=== PATIENT | female | born 1960 | race Hispanic/Latino ===

== ENCOUNTER 2021-03-06 09:59 | Inpatient (IN) | payer BC, OTHER ==
[2021-03-06] VITALS (9 sets, daily range): BP systolic 87–107; BP diastolic 47–61
[~2021-03-06] VITALS: Ht 160 cm; Wt 74.0 kg
[2021-03-06 10:28] LABS: ABG BASE EXCESS 4.3 mmol/L (-2.0-3.0); ABG HCO3 27.5 mmol/L (21.0-28.0); ABG OXYGEN SATURATION 83.5 % (95.0-99.0); ABG PCO2 37 mmHg (32-45)
[2021-03-06 10:38] LABS: BASOPHILS % (AUTO) 0.1 % (0.0-5.0); HEMATOCRIT 40.5 % (36-48); LYMPHOCYTES % (AUTO) 8.7 % (21.0-51.0); MEAN CORPUSCULAR HGB CONC 33.6 g/dL (32.0-36.0); MEAN CORPUSCULAR VOLUME 83.3 fL (79-99); MONOCYTES % (AUTO) 4.3 % (3.0-13.0); NEUTROPHILS % (AUTO) 86.4 % (40.0-77.0); PLATELET COUNT (AUTO) 270 K/uL (130-400); RED BLOOD CELL COUNT(AUTO) 4.86 MIL/uL (4.00-5.50); RED CELL DISTRIBUTION WIDTH 13.3 % (11.0-15.5); WHITE BLOOD COUNT (AUTO) 12.7 K/uL (4.8-10.8)
[2021-03-06] MEDS ORDERED: ACETAMINOPHEN 500 MG TABLET ONE (10:42)
[2021-03-06 10:52] LABS: CARBON DIOXIDE 32 mmol/L (21-32); CHLORIDE 99 mmol/L (101-111); GLOMERULAR FILTR. RATE CALC 60 mL/min (>60); GLUCOSE,RANDOM 126 mg/dL (70-105); POTASSIUM 3.1 mmol/L (3.5-5.1); SODIUM SERUM 139 mmol/L (136-145); UREA NITROGEN, BLOOD 21 mg/dL (7-18)
[2021-03-06 11:03] LABS: ALANINE AMINOTRANSFERASE 60 U/L (12-78); ASPARTATE AMINOTRANSFERASE 56 U/L (10-37); BILIRUBIN,TOTAL 0.8 mg/dL (0.2-1.0); CREATINE KINASE, TOTAL 48 U/L (21-232); MYOGLOBIN 42 ng/mL (10-92); TOTAL PROTEIN, SERUM 7.6 g/dL (6.0-8.3); TROPONIN I < 0.04 ng/mL (0.00-0.06)
[2021-03-06 11:11] LABS: B-TYPE NATRIURETIC PEPTIDE 52 pg/mL (0-100)
[2021-03-06] MEDS ORDERED: ERGOCALCIFEROL (VITAMIN D2) 50,000 UNIT CAPSULE PO ONE (12:00)
[2021-03-06] MEDS ORDERED: LACTULOSE 20 GM/30 ML UDCUP PO PRN (12:00)
[2021-03-06] MEDS: CEFTRIAXONE 1G VIAL IVP SCH ×2 (12:00→23:30)
[2021-03-06] MEDS ORDERED: ACETAMINOPHEN 325 MG TAB PO PRN ×2 (12:00)
[2021-03-06] MEDS ORDERED: ONDANSETRON 4MG INJ IV PRN (12:00)
[2021-03-06] MEDS: DEXAMETHASONE SOD PHOSPHATE 4 MG/ML 1ML VIAL IVP SCH (12:00)
[2021-03-06] MEDS ORDERED: PHARMACY COMMUNICATION MISC SCH (12:30)
[2021-03-06] MEDS ORDERED: DOXYCYCLINE 100MG+NS 250ML IV SCH (13:00)
[2021-03-06 13:29] LABS: INR 1.08 (0.85-1.15); PARTIAL THROMBOPLASTIN TIME 26.2 SEC (26.3-35.5); PROTHROMBIN TIME 11.1 SEC (9.6-11.6)
[2021-03-06] MEDS ORDERED: CEFTRIAXONE 1G VIAL ONE (14:15)
[2021-03-06] MEDS ORDERED: DEXAMETHASONE SOD PHOSPHATE 4 MG/ML 1ML VIAL ONE (14:15)
[2021-03-06] MEDS ORDERED: IOHEXOL-350 75 ML VIAL IV ONE (14:38)
[2021-03-06] MEDS ORDERED: COMPOUND IV REFRIGERATED 1 EACH IVSOLN MISC PRN (15:00)
[2021-03-06] MEDS ORDERED: REMDESIVIR (EUA) 520 200 MG in 0.9% NACL 250ML 250 ML IV ONE (15:00)
[2021-03-06] MEDS ORDERED: ESTR0.5T PO (15:55)
[2021-03-06] MEDS ORDERED: ERGO500093 PO (15:58)
[2021-03-06] MEDS ORDERED: AZIT250T9 PO (16:00)
[2021-03-06] MEDS: FAMOTIDINE 20MG VIAL IV SCH (20:49)
[2021-03-06] MEDS: DOXYCYCLINE HYCLATE 100 MG TABLET PO SCH (20:50)
[2021-03-07 00:19] LABS: APPEARANCE,URINE Clear (CLEAR); BILIRUBIN,URINE Negative (NEGATIVE); COLOR,URINE Yellow (YELLOW); GLUCOSE, URINE (UA) Negative (NEGATIVE); KETONES,URINE Negative (NEGATIVE); LEUKOCYTE ESTERASE ,URINE Negative (NEGATIVE); NITRATE,URINE Negative (NEGATIVE); OCCULT BLOOD,URINE Negative (NEGATIVE); PROTEIN,URINE POS 1+ mg/dL (NEGATIVE)
[2021-03-07 00:25] LABS: BACTERIA,URINE None Seen /HPF (None Seen); RBC,URINE None Seen /HPF (0-1); SQUAMOUS EPITHELIAL CELL,UR Few /HPF (0-2); WBC,URINE None Seen /HPF (0-1)
[2021-03-07 03:54] VITALS: BP 110/68
[2021-03-07 04:38] LABS: BASOPHILS % (AUTO) 0.1 % (0.0-5.0); LYMPHOCYTES % (AUTO) 9.2 % (21.0-51.0); MEAN CORPUSCULAR HEMOGLOBIN 27.6 pg (27.0-33.0); MEAN CORPUSCULAR HGB CONC 32.2 g/dL (32.0-36.0); MEAN CORPUSCULAR VOLUME 85.5 fL (79-99); MONOCYTES % (AUTO) 5.2 % (3.0-13.0); NEUTROPHILS % (AUTO) 85.1 % (40.0-77.0); PLATELET COUNT (AUTO) 264 K/uL (130-400); RED BLOOD CELL COUNT(AUTO) 4.21 MIL/uL (4.00-5.50); RED CELL DISTRIBUTION WIDTH 13.5 % (11.0-15.5); WHITE BLOOD COUNT (AUTO) 10.2 K/uL (4.8-10.8)
[2021-03-07 04:55] LABS: ALBUMIN 2.7 g/dL (3.5-5.0); BILIRUBIN,TOTAL 0.5 mg/dL (0.2-1.0); CREATININE 0.9 mg/dL (0.5-1.5); CRP QUANTITATIVE 169.4 mg/L (0.00-9.0)
[2021-03-07] MEDS ORDERED: POTASSIUM CHLORIDE 10% ELIXIR 20 MEQ/15 ML UDCUP PO PRN (05:45)
[2021-03-07] MEDS ORDERED: LIDOCAINE HCL-MPF 1% 2ML VIAL IV PRN (05:45)
[2021-03-07] MEDS ORDERED: POTASSIUM CHLORIDE 20MEQ/100ML 100 ML IV PRN (05:45)
[2021-03-07] MEDS: REMDESIVIR LABS MISC SCH (06:00)
[2021-03-07 07:22] VITALS: BP 113/71
[2021-03-07] MEDS: DOXYCYCLINE HYCLATE 100 MG TABLET PO SCH ×2 (08:03→22:32)
[2021-03-07] MEDS: FAMOTIDINE 20MG VIAL IV SCH ×2 (08:03→22:32)
[2021-03-07] MEDS: ENOXAPARIN SODIUM 40 MG/0.4 ML SYRINGE SQ SCH (08:03)
[2021-03-07] MEDS: ASCORBIC ACID 500 MG TAB PO SCH (08:03)
[2021-03-07] MEDS: KCL 20 MEQ ERTAB PO PRN ×2 (08:04→11:52)
[2021-03-07] MEDS: DEXAMETHASONE SOD PHOSPHATE 4 MG/ML 1ML VIAL IVP SCH ×2 (11:51→23:18)
[2021-03-07] MEDS: ZINC SULFATE 220 CAPSULE PO SCH (11:51)
[2021-03-07] MEDS: CEFTRIAXONE 1G VIAL IVP SCH ×2 (11:51→23:18)
[2021-03-07 12:00] VITALS: BP 92/48
[2021-03-07] MEDS: REMDESIVIR (EUA) 520 100 MG in 0.9% NACL 250ML 250 ML IV SCH (14:03)
[2021-03-07] MEDS ORDERED: PHARMACY COMMUNICATION MISC SCH (14:45)
[2021-03-07] MEDS: BARICITINIB (EUA) 2 MG TABLET PO SCH (15:43)
[2021-03-07 16:01] VITALS: BP 99/66
[2021-03-07 20:00] VITALS: BP 112/66
[2021-03-08 04:00] VITALS: BP 119/75
[2021-03-08 04:33] LABS: BASOPHILS % (AUTO) 0.2 % (0.0-5.0); HEMATOCRIT 37.3 % (36-48); LYMPHOCYTES % (AUTO) 17.1 % (21.0-51.0); MEAN CORPUSCULAR HGB CONC 32.4 g/dL (32.0-36.0); MEAN CORPUSCULAR VOLUME 86.3 fL (79-99); MONOCYTES % (AUTO) 4.5 % (3.0-13.0); NEUTROPHILS % (AUTO) 77.4 % (40.0-77.0); PLATELET COUNT (AUTO) 329 K/uL (130-400); RED BLOOD CELL COUNT(AUTO) 4.32 MIL/uL (4.00-5.50); RED CELL DISTRIBUTION WIDTH 13.6 % (11.0-15.5); WHITE BLOOD COUNT (AUTO) 4.9 K/uL (4.8-10.8)
[2021-03-08 04:49] LABS: ALBUMIN 2.6 g/dL (3.5-5.0); BILIRUBIN,DIRECT 0.1 mg/dL (0.0-0.3); BILIRUBIN,TOTAL 0.6 mg/dL (0.2-1.0); CREATININE 0.8 mg/dL (0.5-1.5); CRP QUANTITATIVE 115.6 mg/L (0.00-9.0); MAGNESIUM 2.5 mg/dL (1.80-2.40); POTASSIUM 3.9 mmol/L (3.5-5.1); TOTAL PROTEIN, SERUM 6.9 g/dL (6.0-8.3)
[2021-03-08] MEDS: REMDESIVIR LABS MISC SCH (06:00)
[2021-03-08 07:00] VITALS: BP 122/78
[2021-03-08] MEDS: ASCORBIC ACID 500 MG TAB PO SCH (08:23)
[2021-03-08] MEDS: FAMOTIDINE 20MG VIAL IV SCH ×2 (08:23→20:09)
[2021-03-08] MEDS: DOXYCYCLINE HYCLATE 100 MG TABLET PO SCH ×2 (08:23→20:10)
[2021-03-08] MEDS: ENOXAPARIN SODIUM 40 MG/0.4 ML SYRINGE SQ SCH (08:24)
[2021-03-08] MEDS: BARICITINIB (EUA) 2 MG TABLET PO SCH (09:00)
[2021-03-08 12:00] VITALS: BP 110/65
[2021-03-08] MEDS: CEFTRIAXONE 1G VIAL IVP SCH ×2 (12:39→23:03)
[2021-03-08] MEDS: ZINC SULFATE 220 CAPSULE PO SCH (12:40)
[2021-03-08] MEDS: DEXAMETHASONE SOD PHOSPHATE 4 MG/ML 1ML VIAL IVP SCH ×2 (12:40→23:03)
[2021-03-08] MEDS: REMDESIVIR (EUA) 520 100 MG in 0.9% NACL 250ML 250 ML IV SCH (14:53)
[2021-03-08 16:00] VITALS: BP 115/67
[2021-03-08 20:00] VITALS: BP 109/70
[2021-03-09 04:00] VITALS: BP 112/71
[2021-03-09 04:35] LABS: BASOPHILS % (AUTO) 0.2 % (0.0-5.0); HEMATOCRIT 37.5 % (36-48); LYMPHOCYTES % (AUTO) 9.5 % (21.0-51.0); MEAN CORPUSCULAR HEMOGLOBIN 27.4 pg (27.0-33.0); MEAN CORPUSCULAR VOLUME 85.6 fL (79-99); MONOCYTES % (AUTO) 4.6 % (3.0-13.0); PLATELET COUNT (AUTO) 383 K/uL (130-400); RED BLOOD CELL COUNT(AUTO) 4.38 MIL/uL (4.00-5.50); RED CELL DISTRIBUTION WIDTH 13.4 % (11.0-15.5); WHITE BLOOD COUNT (AUTO) 5.5 K/uL (4.8-10.8)
[2021-03-09 05:40] LABS: ALBUMIN 2.5 g/dL (3.5-5.0); BILIRUBIN,DIRECT 0.1 mg/dL (0.0-0.3); BILIRUBIN,TOTAL 0.6 mg/dL (0.2-1.0); CREATININE 0.7 mg/dL (0.5-1.5); CRP QUANTITATIVE 61.5 mg/L (0.00-9.0); TOTAL PROTEIN, SERUM 6.4 g/dL (6.0-8.3)
[2021-03-09] MEDS: REMDESIVIR LABS MISC SCH (06:00)
[2021-03-09 08:00] VITALS: BP 115/66
[2021-03-09] MEDS: DOXYCYCLINE HYCLATE 100 MG TABLET PO SCH ×2 (08:51→21:23)
[2021-03-09] MEDS: ASCORBIC ACID 500 MG TAB PO SCH (08:51)
[2021-03-09] MEDS: FAMOTIDINE 20MG VIAL IV SCH ×2 (08:51→21:23)
[2021-03-09] MEDS: ENOXAPARIN SODIUM 40 MG/0.4 ML SYRINGE SQ SCH ×2 (08:52→21:25)
[2021-03-09] MEDS: BARICITINIB (EUA) 2 MG TABLET PO SCH (09:00)
[2021-03-09 12:00] VITALS: BP 122/64
[2021-03-09] MEDS: DEXAMETHASONE SOD PHOSPHATE 4 MG/ML 1ML VIAL IVP SCH ×2 (12:16→23:49)
[2021-03-09] MEDS: CEFTRIAXONE 1G VIAL IVP SCH ×2 (12:16→23:57)
[2021-03-09] MEDS: ZINC SULFATE 220 CAPSULE PO SCH (12:16)
[2021-03-09] MEDS: REMDESIVIR (EUA) 520 100 MG in 0.9% NACL 250ML 250 ML IV SCH (15:40)
[2021-03-09 16:00] VITALS: BP 118/59
[2021-03-09 20:00] VITALS: BP 113/65
[2021-03-10] VITALS (7 sets, daily range): BP systolic 94–139; BP diastolic 53–74
[2021-03-10 05:28] LABS: CREATININE 0.8 mg/dL (0.5-1.5); CRP QUANTITATIVE 39.9 mg/L (0.00-9.0)
[2021-03-10 07:25] LABS: BASOPHILS % (AUTO) 0.3 % (0.0-5.0); HEMATOCRIT 40.4 % (36-48); LYMPHOCYTES % (AUTO) 9.3 % (21.0-51.0); MEAN CORPUSCULAR HEMOGLOBIN 28.1 pg (27.0-33.0); MEAN CORPUSCULAR HGB CONC 32.7 g/dL (32.0-36.0); MEAN CORPUSCULAR VOLUME 86.1 fL (79-99); MONOCYTES % (AUTO) 4.1 % (3.0-13.0); NEUTROPHILS % (AUTO) 84.4 % (40.0-77.0); PLATELET COUNT (AUTO) 466 K/uL (130-400); RED BLOOD CELL COUNT(AUTO) 4.69 MIL/uL (4.00-5.50); RED CELL DISTRIBUTION WIDTH 13.3 % (11.0-15.5); WHITE BLOOD COUNT (AUTO) 7.7 K/uL (4.8-10.8)
[2021-03-10] MEDS: BARICITINIB (EUA) 2 MG TABLET PO SCH (09:00)
[2021-03-10] MEDS: ASCORBIC ACID 500 MG TAB PO SCH (09:09)
[2021-03-10] MEDS: DOXYCYCLINE HYCLATE 100 MG TABLET PO SCH (09:09)
[2021-03-10] MEDS: FAMOTIDINE 20MG VIAL IV SCH ×2 (09:09→21:42)
[2021-03-10] MEDS: ENOXAPARIN SODIUM 40 MG/0.4 ML SYRINGE SQ SCH ×2 (09:10→21:43)
[2021-03-10] MEDS: ZINC SULFATE 220 CAPSULE PO SCH (12:58)
[2021-03-10] MEDS: DEXAMETHASONE SOD PHOSPHATE 4 MG/ML 1ML VIAL IVP SCH ×2 (12:58→23:02)
[2021-03-10] MEDS: CEFTRIAXONE 1G VIAL IVP SCH (12:58)
[2021-03-10] MEDS: REMDESIVIR (EUA) 520 100 MG in 0.9% NACL 250ML 250 ML IV SCH (16:01)
[2021-03-10] MEDS: REMDESIVIR LABS MISC SCH (19:00)
[2021-03-11 04:15] VITALS: BP 118/77
[2021-03-11 04:45] LABS: BASOPHILS % (AUTO) 0.3 % (0.0-5.0); MEAN CORPUSCULAR HEMOGLOBIN 27.2 pg (27.0-33.0); MEAN CORPUSCULAR HGB CONC 31.5 g/dL (32.0-36.0); MEAN CORPUSCULAR VOLUME 86.1 fL (79-99); NEUTROPHILS % (AUTO) 81.7 % (40.0-77.0); PLATELET COUNT (AUTO) 422 K/uL (130-400); RED BLOOD CELL COUNT(AUTO) 4.53 MIL/uL (4.00-5.50); RED CELL DISTRIBUTION WIDTH 13.2 % (11.0-15.5); WHITE BLOOD COUNT (AUTO) 6.5 K/uL (4.8-10.8)
[2021-03-11 05:14] LABS: ALBUMIN 2.5 g/dL (3.5-5.0); BILIRUBIN,TOTAL 0.5 mg/dL (0.2-1.0); CREATININE 0.7 mg/dL (0.5-1.5); CRP QUANTITATIVE 24.1 mg/L (0.00-9.0); MAGNESIUM 1.9 mg/dL (1.80-2.40); PHOSPHORUS 3.8 mg/dL (2.5-4.9); POTASSIUM 4.4 mmol/L (3.5-5.1)
[2021-03-11] MEDS: REMDESIVIR LABS MISC SCH (06:42)
[2021-03-11 07:50] VITALS: BP 95/51
[2021-03-11] MEDS: FAMOTIDINE 20MG VIAL IV SCH ×2 (08:06→21:12)
[2021-03-11] MEDS: BARICITINIB (EUA) 2 MG TABLET PO SCH (08:06)
[2021-03-11] MEDS: ASCORBIC ACID 500 MG TAB PO SCH (08:06)
[2021-03-11] MEDS: ENOXAPARIN SODIUM 40 MG/0.4 ML SYRINGE SQ SCH (08:08)
[2021-03-11] MEDS ORDERED: DEXAMETHASONE SOD PHOSPHATE 4 MG/ML 1ML VIAL IVP SCH (09:00)
[2021-03-11] MEDS: ZINC SULFATE 220 CAPSULE PO SCH (11:29)
[2021-03-11 12:00] VITALS: BP 95/55
[2021-03-11 16:00] VITALS: BP 111/71
[2021-03-11 20:56] VITALS: BP 99/62
[2021-03-11] MEDS: APIXABAN 2.5 MG TABLET PO SCH (21:12)
[2021-03-11 23:57] VITALS: BP 116/53
[2021-03-12] VITALS (8 sets, daily range): BP systolic 81–128; BP diastolic 41–74
[2021-03-12 06:37] LABS: BASOPHILS % (AUTO) 0.3 % (0.0-5.0); EOSINOPHILS % (AUTO) 0.3 % (0.0-8.0); HEMATOCRIT 37.2 % (36-48); MEAN CORPUSCULAR HEMOGLOBIN 27.4 pg (27.0-33.0); MEAN CORPUSCULAR VOLUME 85.5 fL (79-99); MONOCYTES % (AUTO) 5.6 % (3.0-13.0); PLATELET COUNT (AUTO) 402 K/uL (130-400); RED BLOOD CELL COUNT(AUTO) 4.35 MIL/uL (4.00-5.50); RED CELL DISTRIBUTION WIDTH 13.1 % (11.0-15.5); WHITE BLOOD COUNT (AUTO) 8.7 K/uL (4.8-10.8)
[2021-03-12 07:01] LABS: ALBUMIN 2.4 g/dL (3.5-5.0); BILIRUBIN,TOTAL 0.7 mg/dL (0.2-1.0); CREATININE 0.8 mg/dL (0.5-1.5); CRP QUANTITATIVE 13.5 mg/L (0.00-9.0); POTASSIUM 3.6 mmol/L (3.5-5.1); TOTAL PROTEIN, SERUM 5.4 g/dL (6.0-8.3)
[2021-03-12] MEDS: ASCORBIC ACID 500 MG TAB PO SCH (08:58)
[2021-03-12] MEDS: APIXABAN 2.5 MG TABLET PO SCH ×2 (08:58→21:34)
[2021-03-12] MEDS: BARICITINIB (EUA) 2 MG TABLET PO SCH (08:59)
[2021-03-12] MEDS: DEXAMETHASONE 4 MG TAB PO SCH (08:59)
[2021-03-12] MEDS: FAMOTIDINE 20MG VIAL IV SCH ×2 (08:59→21:35)
[2021-03-12] MEDS ORDERED: LACTATED RINGERS 1000ML 1,000 ML IV ONE (09:11)
[2021-03-12] MEDS ORDERED: LACTATED RINGERS 1000ML 1,000 ML IV SCH (09:30)
[2021-03-12] MEDS: LACTATED RINGERS 1000ML IV SCH (10:05)
[2021-03-12] MEDS ORDERED: MIDODRINE HCL 5 MG TABLET PO SCH (10:15)
[2021-03-12] MEDS: ZINC SULFATE 220 CAPSULE PO SCH (12:17)
[2021-03-12] MEDS: ZOSYN 3.375GM+NS 50ML 50 ML IV SCH ×2 (12:18→18:02)
[2021-03-12] MEDS: MIDODRINE HCL 5 MG TABLET PO SCH ×2 (13:13→21:34)
[2021-03-12 21:59] LABS: APPEARANCE,URINE Clear (CLEAR); BILIRUBIN,URINE Negative (NEGATIVE); COLOR,URINE Yellow (YELLOW); GLUCOSE, URINE (UA) 250 mg/dL (NEGATIVE); KETONES,URINE Negative (NEGATIVE); LEUKOCYTE ESTERASE ,URINE Negative (NEGATIVE); NITRATE,URINE Negative (NEGATIVE); OCCULT BLOOD,URINE Negative (NEGATIVE); PROTEIN,URINE Negative (NEGATIVE); UROBILINOGEN,URINE 0.2 mg/dL (0.2-1.0)
[2021-03-13] VITALS (8 sets, daily range): BP systolic 81–135; BP diastolic 44–74
[2021-03-13] MEDS: ZOSYN 3.375GM+NS 50ML 50 ML IV SCH ×3 (01:18→17:47)
[2021-03-13] MEDS ORDERED: COSYNTROPIN 0.25 MG VIAL IM SCH (04:00)
[2021-03-13 05:27] LABS: CREATININE 0.7 mg/dL (0.5-1.5); CRP QUANTITATIVE 10.3 mg/L (0.00-9.0); POTASSIUM 4.1 mmol/L (3.5-5.1)
[2021-03-13 05:33] LABS: BASOPHILS % (AUTO) 0.3 % (0.0-5.0); EOSINOPHILS % (AUTO) 0.2 % (0.0-8.0); HEMATOCRIT 35.5 % (36-48); LYMPHOCYTES % (AUTO) 17.3 % (21.0-51.0); MEAN CORPUSCULAR HEMOGLOBIN 27.5 pg (27.0-33.0); MEAN CORPUSCULAR HGB CONC 32.1 g/dL (32.0-36.0); MEAN CORPUSCULAR VOLUME 85.5 fL (79-99); MONOCYTES % (AUTO) 5.6 % (3.0-13.0); NEUTROPHILS % (AUTO) 70.5 % (40.0-77.0); PLATELET COUNT (AUTO) 376 K/uL (130-400); RED BLOOD CELL COUNT(AUTO) 4.15 MIL/uL (4.00-5.50); RED CELL DISTRIBUTION WIDTH 13.3 % (11.0-15.5); WHITE BLOOD COUNT (AUTO) 9.6 K/uL (4.8-10.8)
[2021-03-13] MEDS: LACTATED RINGERS 1000ML IV SCH (08:06)
[2021-03-13] MEDS: DEXAMETHASONE 4 MG TAB PO SCH (10:28)
[2021-03-13] MEDS: FAMOTIDINE 20MG VIAL IV SCH ×2 (10:28→20:25)
[2021-03-13] MEDS: APIXABAN 2.5 MG TABLET PO SCH ×2 (10:29→20:25)
[2021-03-13] MEDS: MIDODRINE HCL 5 MG TABLET PO SCH ×3 (10:29→20:32)
[2021-03-13] MEDS: BARICITINIB (EUA) 2 MG TABLET PO SCH (10:29)
[2021-03-13] MEDS: ASCORBIC ACID 500 MG TAB PO SCH (10:29)
[2021-03-13] MEDS: ZINC SULFATE 220 CAPSULE PO SCH (12:08)
[2021-03-13] MEDS ORDERED: LACTATED RINGERS 1000ML 1,000 ML IV ONE (17:14)
[2021-03-14] MEDS: ZOSYN 3.375GM+NS 50ML 50 ML IV SCH ×2 (01:22→09:55)
[2021-03-14 03:00] VITALS: BP 107/73
[2021-03-14 06:01] LABS: BASOPHILS % (AUTO) 0.3 % (0.0-5.0); EOSINOPHILS % (AUTO) 0.2 % (0.0-8.0); HEMATOCRIT 36.3 % (36-48); LYMPHOCYTES % (AUTO) 17.7 % (21.0-51.0); MEAN CORPUSCULAR HEMOGLOBIN 28.8 pg (27.0-33.0); MEAN CORPUSCULAR HGB CONC 33.9 g/dL (32.0-36.0); MONOCYTES % (AUTO) 4.2 % (3.0-13.0); NEUTROPHILS % (AUTO) 72.6 % (40.0-77.0); PLATELET COUNT (AUTO) 357 K/uL (130-400); RED BLOOD CELL COUNT(AUTO) 4.27 MIL/uL (4.00-5.50); RED CELL DISTRIBUTION WIDTH 13.5 % (11.0-15.5); WHITE BLOOD COUNT (AUTO) 10.5 K/uL (4.8-10.8)
[2021-03-14 07:00] VITALS: BP 95/53
[2021-03-14] MEDS: FAMOTIDINE 20MG VIAL IV SCH (08:56)
[2021-03-14] MEDS: BARICITINIB (EUA) 2 MG TABLET PO SCH (08:56)
[2021-03-14] MEDS: MIDODRINE HCL 5 MG TABLET PO SCH ×2 (08:57→13:47)
[2021-03-14] MEDS: APIXABAN 2.5 MG TABLET PO SCH (08:57)
[2021-03-14] MEDS: ASCORBIC ACID 500 MG TAB PO SCH (08:57)
[2021-03-14] MEDS: DEXAMETHASONE 4 MG TAB PO SCH (08:57)
[2021-03-14 11:00] VITALS: BP 94/63
[2021-03-14] MEDS ORDERED: DEXA6TAB PO (12:22)
[2021-03-14] MEDS ORDERED: PANT40TA55 PO (12:23)
[2021-03-14] MEDS ORDERED: FLUD0.1T2 PO (12:23)
[2021-03-14] MEDS ORDERED: APIX2.5T PO ×2 (12:23→13:44)
[2021-03-14] MEDS ORDERED: MIDO5TAB4 PO (12:23)
[2021-03-14] MEDS: ZINC SULFATE 220 CAPSULE PO SCH (13:47)
== END 2021-03-14 14:37 | disposition home or self-care (01) | DRG 177 ==
LOC: EDH 09:59 → EDHIP 11:48 → 2AH 16:09
PROVIDERS: ADMIT Internal Medicine; ATTEND Internal Medicine
PROC: XW13325 Transfusion of Convalescent Plasma (Nonautologous) into Peripheral Vein, Percutaneous Approach, New Technology Group 5 (ICD-10-PCS; principal; 2021-03-06)
PROC: XW033E5 Introduction of Remdesivir Anti-infective into Peripheral Vein, Percutaneous Approach, New Technology Group 5 (ICD-10-PCS; 2021-03-06)
PROC: 5A0935A Assistance with Respiratory Ventilation, Less than 24 Consecutive Hours, High Flow/Velocity Cannula (ICD-10-PCS; 2021-03-07)
PROC: 5A0935A Assistance with Respiratory Ventilation, Less than 24 Consecutive Hours, High Flow/Velocity Cannula (ICD-10-PCS; 2021-03-08)
PROC: 5A0935A Assistance with Respiratory Ventilation, Less than 24 Consecutive Hours, High Flow/Velocity Cannula (ICD-10-PCS; 2021-03-09)
DX: U07.1 COVID-19 (principal); J12.82 Pneumonia due to coronavirus disease 2019; J96.01 Acute respiratory failure with hypoxia; D68.59 Other primary thrombophilia; E87.6 Hypokalemia; I95.9 Hypotension, unspecified; Z90.710 Acquired absence of both cervix and uterus; Z85.41 Personal history of malignant neoplasm of cervix uteri; Z79.52 Long term (current) use of systemic steroids; Z79.899 Other long term (current) drug therapy; Z83.3 Family history of diabetes mellitus
CPT/HCPCS: 36415; 36430; 36600; 71045; 71275; 80048; 80053; 80076; 80400; 81001; 81003; 82533; 82550; 82627; 82728; 82803; 82948; 83605; 83615; 83735; 83874; 83880; 84100; 84145; 84244; 84484; 85025; 85378; 85610; 85730; 86140; 86850; 86900; 86901; 86927; 87040; 87088; 87426; 87637; 93005; 94760; 99291; A4606; G0378; J0696; J0834; J1100; J1650; J2543; J3480; J3490; J7050; J7120; J8540; Q9967